=== PATIENT | male | born 1975 | race Native Hawaiian/Other Pacific Islander ===

== ENCOUNTER 2016-10-22 22:17 | Inpatient (IN) | payer MEDICAID ==
[2016-10-22] MEDS ORDERED: Sodium Chloride 0.9% 1,000 ML IV STA (22:22)
[2016-10-22 23:16] LABS: BASO % 0.1 % (0.0-2.0); EOS % 0.2 % (0.0-4.0); HEMOGLOBIN 14.3 g/dL (12.0-18.0); LYMPH # 1.7 K/uL (1.0-4.3); LYMPH % 14.9 % (20.0-40.0); MEAN CELL VOLUME 87.8 fl (80.0-94.0); MEAN CORPUSCULAR HEMOGLOBIN 30.4 pg (27.0-31.0); MEAN CORPUSCULAR HGB CONC 34.7 g/dL (33.0-37.0); MEAN PLATELET VOLUME 6.4 fl (7.2-11.7); MONO # 0.9 K/uL (0.0-0.8); MONO % 8.1 % (0.0-10.0); NEUT # 8.7 K/uL (1.8-7.0); NEUT % 76.7 % (50.0-75.0); NRBC % 0.1 % (0.0-0.0); RBC 4.7 Mil/uL (4.40-5.90); RED CELL DISTRIBUTION WIDTH 13.9 % (11.5-14.5); WHITE BLOOD COUNT 11.4 K/uL (4.8-10.8)
[2016-10-22 23:20] LABS: VENOUS BLOOD GAS BASE EXCESS 11.1 mmol/L (0.0-2.0); VENOUS BLOOD GAS PCO2 55 mmHg (40-60); VENOUS BLOOD GAS PO2 12 mm/Hg (30-55); VENOUS BLOOD PH 7.44 (7.32-7.43)
[2016-10-22 23:30] LABS: ALB/GLOB RATIO 1.1 (1.0-2.1); ALBUMIN 3.4 g/dL (3.5-5.0); ALT/SGPT 70 U/L (21-72); AST/SGOT 65 U/L (17-59); BLOOD UREA NITROGEN 7 mg/dl (9-20); GFR AFRICAN-AMERICAN > 60; GFR NON-AFRICAN AMERICAN > 60
[2016-10-22 23:43] LABS: INR 1.1 (0.9-1.2); PARTIAL THROMBOPLASTIN TIME 31.8 Seconds (25.6-37.1); PROTHROMBIN TIME 12.6 Seconds (9.8-13.1)
[2016-10-22] MEDS ORDERED: Sodium Chloride 0.9% 50 ML IV ONE (23:45)
[2016-10-22] MEDS ORDERED: Iohexol 300 100 ML IJ ONE (23:45)
--- NOTE | 2016-10-23 00:03 | ED PDOC ---
HPI:Nausea, Vomiting, Diarrhea Time Seen by Provider: 10/22/16 22:22 Chief Complaint (Nursing): Flu-like Symptoms Chief Complaint (Provider): Vomiting/Diarrhea History Per: Patient History/Exam Limitations: no limitations Onset/Duration Of Symptoms: Days (x6) Current Symptoms Are (Timing): Still Present Have you had recent travel within the past 21 days to any of the following countries: [place], [place], [place] or [place]?: No Associated Symptoms: Fever, Chills, Vomiting, Diarrhea Additional Complaint(s): 40 year old male presents to ED with complaints of vomiting and diarrhea x6 days and has a past medical history of HIV (Last T cell count: 1000 with an undetectable viral load - on antiviral therapy). Notes watery diarrhea and intermittent vomiting (nonbloody and nonbilious). (+) syncope x4 episodes, subjective fever, chills, and lower abdominal cramping, and decreased appetite. States she was in ED yesterday for same complaint and was discharged. Notes that she feels worse than yesterday and denies recent travel/sick contacts. PCP: [facility] Past Medical History Reviewed: Historical Data, Nursing Documentation, Vital Signs Vital Signs: Last Vital Signs Temp 101.3 F H 10/22/16 23:54 Pulse 114 H 10/22/16 22:18 Resp 20 10/22/16 22:18 BP 128/76 10/22/16 22:18 Pulse Ox 100 10/22/16 22:18 - Medical History PMH: HIV (x7 years) Denies: No Chronic Diseases - Surgical History Surgical History: No Surg Hx - Family History Family History: States: No Known Family Hx - Home Medications Home Medications: Ambulatory Orders Medication Instructions Recorded Emtricitab/Rilpiviri/Tenof Ala 200 mg PO DAILY 10/23/16 [Odefsey Tablet] Loperamide [Imodium] 2 mg PO QID 10/23/16 Ciprofloxacin [Cipro] 500 mg PO Q12 #10 tab 10/25/16 Metronidazole [Flagyl] 500 mg PO Q8 #21 tab 10/25/16 - Allergies Allergies/Adverse Reactions: Allergies Allergy/AdvReac Type Severity Reaction Status Date / Time No Known Allergies Allergy Verified 10/22/16 22:19 Review of Systems ROS Statement: Except As Marked, All Systems Reviewed And Found Negative Constitutional: Positive for: Fever, Chills, Weakness, Malaise Gastrointestinal: Positive for: Vomiting, Abdominal Pain (cramping), Diarrhea, Other (decreased appetite) Genitourinary Male: Negative for: Dysuria, Frequency (less urine output than usual) Neurological: Positive for: Other (Syncope) Physical Exam - Reviewed Nursing Documentation Reviewed: Yes Vital Signs Reviewed: Yes - Physical Exam Appears: Positive for: Non-toxic, Uncomfortable, In Acute Distress (tired appearing) Head Exam: Positive for: ATRAUMATIC Skin: Positive for: Diaphoresis, Pallor ENT: Positive for: Pharynx Is (clear). Negative for: Normal ENT Inspection ( dry mucous membranes) Cardiovascular/Chest: Positive for: Regular Rate, Rhythm, Tachycardia. Negative for: Murmur Respiratory: Positive for: Normal Breath Sounds. Negative for: Respiratory Distress Gastrointestinal/Abdominal: Positive for: Bowel Sounds (hyperactive), Soft, Tenderness (TTP bilateral lower quadrants). Negative for: Mass, Distended, Guarding, Rebound Extremity: Positive for: Normal ROM. Negative for: Deformity Neurologic/Psych: Positive for: Alert, Oriented - Laboratory Results Result Diagrams: 10/24/16 05:00 10/25/16 05:00 - ECG ECG Rhythm: Positive for: Normal QRS, Normal ST Segment. Negative for: Nonspecific Changes O2 Sat by Pulse Oximetry: 100 (RA) Pulse Ox Interpretation: Normal Medical Decision Making Medical Decision Makin Initial impression: abdominal pain and diarrhea and vomitng and syncope DDx: sepsis, dehydration, electrolyte abnormality, gastroenteritis, colitis, diverticulitis Initial plan: * CTA A/P * EKG * EtOH serum * UDrug screen * HIV 1&2 Antibodies * Magnesium * Phosphorus * PTT/PT * Labs * CXR * HIV AB-HIV 1/2 EIA * Potassium Chloride IVPB * NS IV * Acetaminophen 975mg PO * Re-eval Accession No. : [id number] Patient Name / ID : SABRINA WIGGINS / [id number] Exam Date : 10/22/2016 23:55:12 ( Approved ) Study Comment : Sex / Age : M / 40Y Creator : Wally Flores MD Dictator : Concrete Smoother : Pulpit Operator : Wally Flores MD Approver2 : Report Date : 10/23/2016 00:17:00 My Comment : [facility] Division of Radiology [address] [facility] [address] Tel. no. Patient Name: ROSALIE BENNETT Pt. Address: [address] [place] [address] Rec #: [id number] [place] [address]: Kolton MTZ, Aurora Patiño Pt CELL Order Location: [facility] : 1975 Male Age: 40 Order #: [id number] Reason for exam: colitis CT Scan ABD PELVIS IV CONTRAST ONLY Exam Date: 10/22/16 This imaging exam was performed at [facility] EXAM: CT Abdomen and Pelvis With Intravenous Contrast CLINICAL HISTORY: 40 years old, male; Pain; Abdominal pain; Generalized; Additional info: Colitis TECHNIQUE: Axial computed tomography images of the abdomen and pelvis with intravenous contrast. This CT exam was performed using one or more of the following dose reduction techniques: automated exposure control, adjustment of the mA and/or kV according to patient size, and/or use of iterative reconstruction technique. CONTRAST: 95 mL of [id number] administered intravenously. COMPARISON: No relevant prior studies available. FINDINGS: Limitations: Motion artifact - mild. Lower thorax: Minimal atelectasis. ABDOMEN: Liver: Mild periportal edema. Gallbladder and bile ducts: No calcified stones. No ductal dilation. Pancreas: No ductal dilation. No mass. Spleen: No splenomegaly. Adrenals: No mass. Kidneys and ureters: No mass. No hydronephrosis. Stomach and bowel: Mild diffuse mural thickening/mucosal enhancement of colon. No obstruction. Appendix: No findings to suggest acute appendicitis. PELVIS: Bladder: Unremarkable. Reproductive: Unremarkable as visualized. ABDOMEN and PELVIS: Intraperitoneal space: No significant fluid collection. No free air. Bones/joints: No acute fracture. Soft tissues: Tiny umbilical hernia containing fat. Vasculature: Unremarkable. No aneurysm. Lymph nodes: Several subcentimeter short axis mesenteric lymph nodes, nonspecific. IMPRESSION: 1. Colitis, nonspecific. Consider inflammatory or infectious etiologies. 2. Incidental/non-acute findings are described above. Dictated By: Wally Flores MD Dictated Date/Time: 10/23/1616 Signed By: Wally Flores MD Date Signed: 16 Transcribed By: IQRA Transcribe Date/Time : 10/23/1616 ACYP02/VRD 1230am On reeval pt is still lightheaded. pt needs hospitalization for dehydration, hypokalemia, syncope. Likely caused by acute infectious diarrhea and colitis. Dw pt findings and plan of care. IV antibiotics ordered. Scribe Attestation: Documented by Tonya Sotomayor acting as a scribe for Aurora Hi MD. Scribe Attestation: All medical record entries made by the Scribe were at my direction and personally dictated by me. I have reviewed the chart and agree that the record accurately reflects my personal performance of the history, physical exam, medical decision making, and the department course for this patient. I have also personally directed, reviewed, and agree with the discharge instructions and disposition. Disposition - Clinical Impression Clinical Impression: HIV disease, Diarrhea, Hypokalemia, Colitis Discussed With : Edis Mills Doctor Will See Patient In The: Hospital Counseled Patient/Family Regarding: Studies Performed, Diagnosis - Disposition Disposition Time: 00:00 Condition: FAIR - Pt Status Changed To: Hospital Disposition Of: Inpatient - Admit Certification Admit to Inpatient:: After my assessment, the patient will require hospitalization for at least two midnights. This is because of the severity of symptoms shown, intensity of services needed, and/or the medical risk in this patient being treated as an outpatient. - POA Present On Arrival: Falls Or Trauma (syncope)
--- NOTE | 2016-10-23 00:17 | CT ---
EXAM: CT Abdomen and Pelvis With Intravenous Contrast CLINICAL HISTORY: 40 years old, male; Pain; Abdominal pain; Generalized; Additional info: Colitis TECHNIQUE: Axial computed tomography images of the abdomen and pelvis with intravenous contrast. This CT exam was performed using one or more of the following dose reduction techniques: automated exposure control, adjustment of the mA and/or kV according to patient size, and/or use of iterative reconstruction technique. CONTRAST: 95 mL of [id number] administered intravenously. COMPARISON: No relevant prior studies available. FINDINGS: Limitations: Motion artifact - mild. Lower thorax: Minimal atelectasis. ABDOMEN: Liver: Mild periportal edema. Gallbladder and bile ducts: No calcified stones. No ductal dilation. Pancreas: No ductal dilation. No mass. Spleen: No splenomegaly. Adrenals: No mass. Kidneys and ureters: No mass. No hydronephrosis. Stomach and bowel: Mild diffuse mural thickening/mucosal enhancement of colon. No obstruction. Appendix: No findings to suggest acute appendicitis. PELVIS: Bladder: Unremarkable. Reproductive: Unremarkable as visualized. ABDOMEN and PELVIS: Intraperitoneal space: No significant fluid collection. No free air. Bones/joints: No acute fracture. Soft tissues: Tiny umbilical hernia containing fat. Vasculature: Unremarkable. No aneurysm. Lymph nodes: Several subcentimeter short axis mesenteric lymph nodes, nonspecific. IMPRESSION: 1. Colitis, nonspecific. Consider inflammatory or infectious etiologies. 2. Incidental/non-acute findings are described above.
[2016-10-23] MEDS: Potassium CL 10mEq/100ml 100 ML IVPB SCH ×8 (00:32→20:21)
[2016-10-23] MEDS ORDERED: metroNIDAZOLE 500mg/100ml NS 100 ML IV STA (00:36)
[2016-10-23] MEDS ORDERED: Ciprofloxacin 400mg/200ml D5W 400 MG/200 ML BAG IV STA (00:36)
[2016-10-23 01:57] LABS: SQUAMOUS EPITHIAL < 1 /hpf (0-5); URINE BILIRUBIN NEGATIVE (NEGATIVE); URINE BLOOD NEGATIVE (NEGATIVE); URINE CLARITY CLEAR (Clear); URINE COLOR YELLOW (YELLOW); URINE GLUCOSE (UA) NEG (Normal); URINE LEUKOCYTE ESTERASE NEG Leu/uL (Negative); URINE NITRATE NEGATIVE (NEGATIVE); URINE PROTEIN NEGATIVE (NEGATIVE); URINE UROBILINOGEN 0.2-1.0 mg/dL (0.2-1.0)
[2016-10-23 01:59] LABS: VENOUS BLOOD GAS BASE EXCESS 7.7 mmol/L (0.0-2.0); VENOUS BLOOD GAS PCO2 38 mmHg (40-60); VENOUS BLOOD GAS PO2 56 mm/Hg (30-55); VENOUS BLOOD PH 7.52 (7.32-7.43)
[2016-10-23 02:10] LABS: BARBITURATES, UR NEGATIVE (NEGATIVE); BENZODIAZEPINES, UR NEGATIVE (NEGATIVE); OPIATES, UR NEGATIVE (NEGATIVE); PHENCYCLIDINE, UR NEGATIVE (NEGATIVE)
[2016-10-23] MEDS ORDERED: metroNIDAZOLE 500mg/100ml NS 100 ML IVPB ONE (02:58)
[2016-10-23] MEDS ORDERED: Potassium Chloride 20 mEq ER Tab PO ONE (03:00)
[2016-10-23] MEDS ORDERED: Potassium CL 10mEq/100ml 100 ML IVPB SCH (03:00)
[2016-10-23] MEDS ORDERED: Oxycodone/Acetaminophen 5/325 mg Tab PO PRN (05:37)
[2016-10-23] MEDS ORDERED: Potassium Chl 20 mEq in D5-NS 1,000 ML IV SCH (06:00)
[2016-10-23] MEDS: Ciprofloxacin 400mg/200ml D5W 400 MG/200 ML BAG IVPB SCH ×2 (06:16→17:39)
[2016-10-23 07:21] LABS: HEMOGLOBIN 13.4 g/dL (12.0-18.0); MEAN CELL VOLUME 87.6 fl (80.0-94.0); MEAN CORPUSCULAR HEMOGLOBIN 30.1 pg (27.0-31.0); MEAN CORPUSCULAR HGB CONC 34.4 g/dL (33.0-37.0); RBC 4.46 Mil/uL (4.40-5.90); RED CELL DISTRIBUTION WIDTH 14.1 % (11.5-14.5); WHITE BLOOD COUNT 13.8 K/uL (4.8-10.8)
[2016-10-23 07:23] LABS: ALT/SGPT 67 U/L (21-72); AST/SGOT 40 U/L (17-59); BLOOD UREA NITROGEN 6 mg/dl (9-20); CALCIUM 8.2 mg/dL (8.4-10.2); GFR AFRICAN-AMERICAN > 60; GFR NON-AFRICAN AMERICAN > 60; HDL CHOLESTEROL 12 MG/DL (30-70)
[2016-10-23 07:34] LABS: LDL CHOLESTEROL 33 mg/dL (0-129)
[2016-10-23 07:37] LABS: T4 7.32 ug/dl (5.5-11.0)
--- NOTE | 2016-10-23 08:32 | CARD ---
APPROVED REPORT EKG Measurement Heart [id number] <Conclusion> Sinus tachycardia Possible Left atrial enlargement Prolonged QT Abnormal ECG
[2016-10-23] MEDS: metroNIDAZOLE 500mg/100ml NS 100 ML IVPB SCH ×3 (09:51→21:49)
--- NOTE | 2016-10-23 10:30 | RAD ---
HISTORY: Sepsis Patient COMPARISON: No prior. FINDINGS: LUNGS: The lungs are clear. PLEURA: No significant pleural effusion identified, no pneumothorax apparent. CARDIOVASCULAR: Normal. OSSEOUS STRUCTURES: No significant abnormalities. VISUALIZED UPPER ABDOMEN: Normal. OTHER FINDINGS: None. IMPRESSION: No active pulmonary disease.
--- NOTE | 2016-10-23 14:07 | CP.PCM.CON ---
History of Present Illness - History of Present Illness History of Present Illness: Infectious Disease Consult Note- Asked to see this patient at the request of for colitis. HPI- Pt. is a 40 year old male with pmh OF HIv ( as perpt. well controlled on Odyfssey with UD Vl and CD4 in 1000 range) who was admitted with complaints of abdominal cramps and diarrhea and vomiting. as per pt. about 6 days ago he developed abd cramping and diarrhea and he passed out and then again same thing happened next day and he initially went to [facility] and they told him his vitals are good and he was d/c . he states the next day simialr thing happened again and he tried to keep hydrated by drinking gatorade and liquids but he was getting faint and dizy again and hence he came to [facility] and on admission CT he was found to have colitis ( as per report). He states he lives in [place] but he was staying at his friend's house in [place] when these symptoms started . He denies any recent travel, denies any change in his diet, denies any sick contacts. He states he also felt feverish past few days. he denies any ELI, denies any cough or any sob . He states the diarrhea is mucusy and light brown. He states he has had diarrhea in past but not like this. He states he feels better since admission and he denies any nausea today. He is on clear liquid diet now. Review of Systems - Review of Systems Review of Systems: ROS- sattes subjectivefever past few days, denies any ELI, denies any cough, denies any sob, denies any chest pain. had abdominal cramping but not any specific location it moves, denies any dysurea, + dairrhea with mucu like consistency, denies any joint or muscle aches denies any recent travel Past Patient History - Past Medical History & Family History Past Medical History?: Yes - Past Social History Smoking Status: 1 cig per week Alcohol: Occasional Drugs: Denies Home Situation {Lives}: Alone - CARDIAC Hx Cardiac Disorders: No - PULMONARY Hx Respiratory Disorders: No - NEUROLOGICAL Hx Neurological Disorder: No - HEENT Hx HEENT Problems: No - RENAL Hx Chronic Kidney Disease: No - ENDOCRINE/METABOLIC Hx Endocrine Disorders: No - HEMATOLOGICAL/ONCOLOGICAL Hx Blood Disorders: Yes Hx Human Immunodeficiency Virus (HIV): Yes - INTEGUMENTARY Hx Dermatological Problems: No - MUSCULOSKELETAL/RHEUMATOLOGICAL Hx Musculoskeletal Disorders: No Hx Falls: No - GASTROINTESTINAL Hx Gastrointestinal Disorders: Yes Hx Colitis: Yes Hx Diarrhea: Yes - GENITOURINARY/GYNECOLOGICAL Hx Genitourinary Disorders: No - PSYCHIATRIC Hx Psychophysiologic Disorder: No Hx Substance Use: No - SURGICAL HISTORY Hx Surgeries: Yes Other/Comment: Lumbar 4-6 - ANESTHESIA Hx Anesthesia: Yes Hx Anesthesia Reactions: No Hx Malignant Hyperthermia: No Has any member of the family had a problem w/ anesthesia?: No Meds Allergies/Adverse Reactions: Allergies Allergy/AdvReac Type Severity Reaction Status Date / Time No Known Allergies Allergy Verified 10/22/16 22:19 - Medications Medications: Current Medications Acetaminophen (Tylenol 325mg Tab) 975 mg PO ONCE PRN PRN Reason: Fever >100.4 F Last Admin: 10/22/16 23:54 Dose: 975 mg Home Med (Emtricitab/Rilpiviri/Tenof Ala [Odefsey Tablet]) 200 mg PO DAILY [facility] Potassium Chloride/Dextrose/Sod Cl (Potassium Chl 20 Meq In D5-Ns) 1,000 mls @ 80 mls/hr IV .[id number] [facility] Stop: 10/24/16 06:59 Last Admin: 10/23/16 06:16 Dose: 80 mls/hr Metronidazole (Flagyl 500mg/100ml Ns) 100 mls @ 100 mls/hr IVPB Q6 [facility] Last Admin: 10/23/16 09:51 Dose: 100 mls/hr Ciprofloxacin (Cipro 400mg/200ml Dsw) 400 mg in 200 mls @ 200 mls/hr IVPB Q12@ 0600,1800 [facility] Last Admin: 10/23/16 06:16 Dose: 200 mls/hr Potassium Chloride (Potassium Chloride 10 Meq/100 Ml) 100 mls @ 100 mls/hr IVPB Q1 [facility] Stop: 10/23/16 14:59 Last Admin: 10/23/16 13:03 Dose: 100 mls/hr Oxycodone/Acetaminophen (Percocet 5/325 Mg Tab) 1 tab PO Q4 PRN PRN Reason: Pain, moderate (4-7) Stop: 10/26/16 05:38 Physical Exam - Constitutional Appears: Non-toxic, No Acute Distress - Head Exam Head Exam: ATRAUMATIC - Eye Exam Eye Exam: EOMI, PERRL - ENT Exam ENT Exam: Normal Oropharynx - Neck Exam Neck exam: Positive for: Full Rom - Respiratory Exam Respiratory Exam: Clear to Auscultation Bilateral, NORMAL BREATHING PATTERN - Cardiovascular Exam Cardiovascular Exam: RRR, +S1, +S2 - GI/Abdominal Exam GI & Abdominal Exam: Soft Additional comments: Hyperactive BS minimal tenderness with palpation minimal guarding, no rebound - Extremities Exam Additional comments: No edema B/l LE - Neurological Exam Neurological exam: Alert, Oriented x3 Results - Vital Signs Recent Vital Signs: Last Vital Signs Temp 98.6 F 10/23/16 12:39 Pulse 96 H 10/23/16 12:39 Resp 20 10/23/16 12:39 BP 125/81 10/23/16 12:39 Pulse Ox 98 10/23/16 12:39 - Labs Result Diagrams: 10/23/16 05:00 10/23/16 05:00 Labs: Laboratory Results - last 24 hr 10/23/16 10/23/16 10/23/16 01:45 01:45 01:53 WBC RBC Hgb Hct MCV MCH MCHC RDW Plt Count pO2 56 H VBG pH 7.52 H VBG pCO2 38 L VBG HCO3 30.8 VBG Total CO2 32.2 H VBG O2 Sat (Calc) 94.6 H VBG Base Excess 7.7 H VBG Potassium 2.3 L* Sodium 125.0 L Chloride 89.0 L Glucose 171 H Lactate 1.5 FiO2 21.0 Crit Value Called To Maximo prajapati md Crit Value Called By [id number] Crit Value Read Back Y Blood Gas Notified Time 158 Potassium Carbon Dioxide Anion Gap BUN Creatinine Est GFR ( Amer) Est GFR (Non-Af Amer) Random Glucose Calcium Total Bilirubin AST ALT Alkaline Phosphatase Total Protein Albumin Globulin Albumin/Globulin Ratio Triglycerides Cholesterol LDL Cholesterol Direct HDL Cholesterol Thyroxine (T4) TSH 3rd Generation Venous Blood Potassium 2.3 L* Urine Color Yellow Urine Clarity Clear Urine pH 7.0 Ur Specific [place] 1.032 H Urine Protein Negative Urine Glucose (UA) Neg Urine Ketones Negative Urine Blood Negative Urine Nitrate Negative Urine Bilirubin Negative Urine Urobilinogen 0.2-1.0 Ur Leukocyte Esterase Neg Urine RBC (Auto) 4 H Urine Microscopic WBC 1 Ur Squamous Epith Cells < 1 Stool Occult Blood Urine Opiates Screen Negative Urine Methadone Screen Negative Ur Barbiturates Screen Negative Ur Phencyclidine Scrn Negative Ur Amphetamines Screen Negative U Benzodiazepines Scrn Negative U Oth Cocaine Metabols Negative U Cannabinoids Screen Negative 10/23/16 10/23/16 10/23/16 03:03 05:00 05:00 WBC 13.8 H RBC 4.46 Hgb 13.4 Hct 39.0 MCV 87.6 MCH 30.1 MCHC 34.4 RDW 14.1 Plt Count 259 pO2 VBG pH VBG pCO2 VBG HCO3 VBG Total CO2 VBG O2 Sat (Calc) VBG Base Excess VBG Potassium Sodium 129 L Chloride 90 L Glucose Lactate FiO2 Crit Value Called To Crit Value Called By Crit Value Read Back Blood Gas Notified Time Potassium 2.4 L* Carbon Dioxide 31 H Anion Gap 10 BUN 6 L Creatinine 0.9 Est GFR ( Amer) > 60 Est GFR (Non-Af Amer) > 60 Random Glucose 102 Calcium 8.2 L Total Bilirubin 0.9 AST 40 ALT 67 Alkaline Phosphatase 107 Total Protein 5.9 L Albumin 3.0 L Globulin 2.9 Albumin/Globulin Ratio 1.0 Triglycerides 93 Cholesterol 51 LDL Cholesterol Direct 33 HDL Cholesterol 12 L Thyroxine (T4) 7.32 TSH 3rd Generation 1.12 Venous Blood Potassium Urine Color Urine Clarity Urine pH Ur Specific [place] Urine Protein Urine Glucose (UA) Urine Ketones Urine Blood Urine Nitrate Urine Bilirubin Urine Urobilinogen Ur Leukocyte Esterase Urine RBC (Auto) Urine Microscopic WBC Ur Squamous Epith Cells Stool Occult Blood Positive H Urine Opiates Screen Urine Methadone Screen Ur Barbiturates Screen Ur Phencyclidine Scrn Ur Amphetamines Screen U Benzodiazepines Scrn U Oth Cocaine Metabols U Cannabinoids Screen Laboratory Results - last 72 hr 10/22/16 10/22/16 10/22/16 23:11 23:11 23:11 WBC 11.4 H RBC 4.70 Hgb 14.3 Hct 41.3 MCV 87.8 MCH 30.4 MCHC 34.7 RDW 13.9 Plt Count 273 MPV 6.4 L Neut % (Auto) 76.7 H Lymph % (Auto) 14.9 L [place] % (Auto) 8.1 Eos % (Auto) 0.2 Baso % (Auto) 0.1 Neut # 8.7 H Lymph # 1.7 [place] # 0.9 H Eos # 0.0 Baso # 0.0 PT 12.6 INR 1.1 APTT 31.8 pO2 VBG pH VBG pCO2 VBG HCO3 VBG Total CO2 VBG O2 Sat (Calc) VBG Base Excess VBG Potassium Glucose Lactate FiO2 Crit Value Called To Crit Value Called By Crit Value Read Back Blood Gas Notified Time Sodium 129 L Potassium 2.7 L Chloride 84 L Carbon Dioxide 36 H Anion Gap 12 BUN 7 L Creatinine 1.0 Est GFR ( Amer) > 60 Est GFR (Non-Af Amer) > 60 Random Glucose 114 H Calcium 9.0 Phosphorus 2.0 L Magnesium 2.0 Total Bilirubin 0.8 AST 65 H ALT 70 Alkaline Phosphatase 121 Total Protein 6.5 Albumin 3.4 L Globulin 3.1 Albumin/Globulin Ratio 1.1 Triglycerides Cholesterol LDL Cholesterol Direct HDL Cholesterol Thyroxine (T4) TSH 3rd Generation Venous Blood Potassium Urine Color Urine Clarity Urine pH Ur Specific [place] Urine Protein Urine Glucose (UA) Urine Ketones Urine Blood Urine Nitrate Urine Bilirubin Urine Urobilinogen Ur Leukocyte Esterase Urine RBC (Auto) Urine Microscopic WBC Ur Squamous Epith Cells Stool Occult Blood Urine Opiates Screen Urine Methadone Screen Ur Barbiturates Screen Ur Phencyclidine Scrn Ur Amphetamines Screen U Benzodiazepines Scrn U Oth Cocaine Metabols U Cannabinoids Screen Alcohol, Quantitative < 10 HIV-1 Ab Rapid Screen HIV 1&2 Antibody Screen Influenza Typ A,B (EIA) Grp A Beta Strep Ag 10/22/16 10/22/16 10/22/16 23:11 23:11 23:11 WBC RBC Hgb Hct MCV MCH MCHC RDW Plt Count MPV Neut % (Auto) Lymph % (Auto) [place] % (Auto) Eos % (Auto) Baso % (Auto) Neut # Lymph # [place] # Eos # Baso # PT INR APTT pO2 VBG pH VBG pCO2 VBG HCO3 VBG Total CO2 VBG O2 Sat (Calc) VBG Base Excess VBG Potassium Glucose Lactate FiO2 Crit Value Called To Crit Value Called By Crit Value Read Back Blood Gas Notified Time Sodium Potassium Chloride Carbon Dioxide Anion Gap BUN Creatinine Est GFR ( Amer) Est GFR (Non-Af Amer) Random Glucose Calcium Phosphorus Magnesium Total Bilirubin AST ALT Alkaline Phosphatase Total Protein Albumin Globulin Albumin/Globulin Ratio Triglycerides Cholesterol LDL Cholesterol Direct HDL Cholesterol Thyroxine (T4) TSH 3rd Generation Venous Blood Potassium Urine Color Urine Clarity Urine pH Ur Specific [place] Urine Protein Urine Glucose (UA) Urine Ketones Urine Blood Urine Nitrate Urine Bilirubin Urine Urobilinogen Ur Leukocyte Esterase Urine RBC (Auto) Urine Microscopic WBC Ur Squamous Epith Cells Stool Occult Blood Urine Opiates Screen Urine Methadone Screen Ur Barbiturates Screen Ur Phencyclidine Scrn Ur Amphetamines Screen U Benzodiazepines Scrn U Oth Cocaine Metabols U Cannabinoids Screen Alcohol, Quantitative HIV-1 Ab Rapid Screen HIV 1&2 Antibody Screen Reactive H Influenza Typ A,B (EIA) Negative for flu a/b Grp A Beta Strep Ag Negative 10/22/16 10/22/16 10/23/16 23:11 23:17 01:45 WBC RBC Hgb Hct MCV MCH MCHC RDW Plt Count MPV Neut % (Auto) Lymph % (Auto) [place] % (Auto) Eos % (Auto) Baso % (Auto) Neut # Lymph # [place] # Eos # Baso # PT INR APTT pO2 12 L VBG pH 7.44 H VBG pCO2 55 VBG HCO3 31.3 VBG Total CO2 39.1 H VBG O2 Sat (Calc) 18.3 L VBG Base Excess 11.1 H VBG Potassium 2.8 L Glucose 115 H Lactate 2.7 H FiO2 21.0 Crit Value Called To Crit Value Called By Crit Value Read Back Blood Gas Notified Time Sodium 126.0 L Potassium Chloride 85.0 L Carbon Dioxide Anion Gap BUN Creatinine Est GFR ( Amer) Est GFR (Non-Af Amer) Random Glucose Calcium Phosphorus Magnesium Total Bilirubin AST ALT Alkaline Phosphatase Total Protein Albumin Globulin Albumin/Globulin Ratio Triglycerides Cholesterol LDL Cholesterol Direct HDL Cholesterol Thyroxine (T4) TSH 3rd Generation Venous Blood Potassium 2.8 L Urine Color Yellow Urine Clarity Clear Urine pH 7.0 Ur Specific [place] 1.032 H Urine Protein Negative Urine Glucose (UA) Neg Urine Ketones Negative Urine Blood Negative Urine Nitrate Negative Urine Bilirubin Negative Urine Urobilinogen 0.2-1.0 Ur Leukocyte Esterase Neg Urine RBC (Auto) 4 H Urine Microscopic WBC 1 Ur Squamous Epith Cells < 1 Stool Occult Blood Urine Opiates Screen Urine Methadone Screen Ur Barbiturates Screen Ur Phencyclidine Scrn Ur Amphetamines Screen U Benzodiazepines Scrn U Oth Cocaine Metabols U Cannabinoids Screen Alcohol, Quantitative HIV-1 Ab Rapid Screen Reactive H HIV 1&2 Antibody Screen Influenza Typ A,B (EIA) Grp A Beta Strep Ag 10/23/16 10/23/16 10/23/16 01:45 01:53 03:03 WBC RBC Hgb Hct MCV MCH MCHC RDW Plt Count MPV Neut % (Auto) Lymph % (Auto) [place] % (Auto) Eos % (Auto) Baso % (Auto) Neut # Lymph # [place] # Eos # Baso # PT INR APTT pO2 56 H VBG pH 7.52 H VBG pCO2 38 L VBG HCO3 30.8 VBG Total CO2 32.2 H VBG O2 Sat (Calc) 94.6 H VBG Base Excess 7.7 H VBG Potassium 2.3 L* Glucose 171 H Lactate 1.5 FiO2 21.0 Crit Value Called To Maximo prajapati md Crit Value Called By 6075 Crit Value Read Back Y Blood Gas Notified Time 158 Sodium 125.0 L Potassium Chloride 89.0 L Carbon Dioxide Anion Gap BUN Creatinine Est GFR ( Amer) Est GFR (Non-Af Amer) Random Glucose Calcium Phosphorus Magnesium Total Bilirubin AST ALT Alkaline Phosphatase Total Protein Albumin Globulin Albumin/Globulin Ratio Triglycerides Cholesterol LDL Cholesterol Direct HDL Cholesterol Thyroxine (T4) TSH 3rd Generation Venous Blood Potassium 2.3 L* Urine Color Urine Clarity Urine pH Ur Specific [place] Urine Protein Urine Glucose (UA) Urine Ketones Urine Blood Urine Nitrate Urine Bilirubin Urine Urobilinogen Ur Leukocyte Esterase Urine RBC (Auto) Urine Microscopic WBC Ur Squamous Epith Cells Stool Occult Blood Positive H Urine Opiates Screen Negative Urine Methadone Screen Negative Ur Barbiturates Screen Negative Ur Phencyclidine Scrn Negative Ur Amphetamines Screen Negative U Benzodiazepines Scrn Negative U Oth Cocaine Metabols Negative U Cannabinoids Screen Negative Alcohol, Quantitative HIV-1 Ab Rapid Screen HIV 1&2 Antibody Screen Influenza Typ A,B (EIA) Grp A Beta Strep Ag 10/23/16 10/23/16 05:00 05:00 WBC 13.8 H RBC 4.46 Hgb 13.4 Hct 39.0 MCV 87.6 MCH 30.1 MCHC 34.4 RDW 14.1 Plt Count 259 MPV Neut % (Auto) Lymph % (Auto) [place] % (Auto) Eos % (Auto) Baso % (Auto) Neut # Lymph # [place] # Eos # Baso # PT INR APTT pO2 VBG pH VBG pCO2 VBG HCO3 VBG Total CO2 VBG O2 Sat (Calc) VBG Base Excess VBG Potassium Glucose Lactate FiO2 Crit Value Called To Crit Value Called By Crit Value Read Back Blood Gas Notified Time Sodium 129 L Potassium 2.4 L* Chloride 90 L Carbon Dioxide 31 H Anion Gap 10 BUN 6 L Creatinine 0.9 Est GFR ( Amer) > 60 Est GFR (Non-Af Amer) > 60 Random Glucose 102 Calcium 8.2 L Phosphorus Magnesium Total Bilirubin 0.9 AST 40 ALT 67 Alkaline Phosphatase 107 Total Protein 5.9 L Albumin 3.0 L Globulin 2.9 Albumin/Globulin Ratio 1.0 Triglycerides 93 Cholesterol 51 LDL Cholesterol Direct 33 HDL Cholesterol 12 L Thyroxine (T4) 7.32 TSH 3rd Generation 1.12 Venous Blood Potassium Urine Color Urine Clarity Urine pH Ur Specific [place] Urine Protein Urine Glucose (UA) Urine Ketones Urine Blood Urine Nitrate Urine Bilirubin Urine Urobilinogen Ur Leukocyte Esterase Urine RBC (Auto) Urine Microscopic WBC Ur Squamous Epith Cells Stool Occult Blood Urine Opiates Screen Urine Methadone Screen Ur Barbiturates Screen Ur Phencyclidine Scrn Ur Amphetamines Screen U Benzodiazepines Scrn U Oth Cocaine Metabols U Cannabinoids Screen Alcohol, Quantitative HIV-1 Ab Rapid Screen HIV 1&2 Antibody Screen Influenza Typ A,B (EIA) Grp A Beta Strep Ag ) Accession No. : [id number] Patient Name / ID : SABRINA WIGGINS / [id number] Exam Date : 10/22/2016 22:37:47 ( Approved ) Study Comment : Sex / Age : M / 40Y Creator : Riana Orozco MD Dictator : Riana Orozco MD Pattern Grader Supervisor : [employer] Sales Representative : Riana Orozco MD Approver2 : Report Date : 10/23/2016 10:28:45 My Comment : HISTORY: Sepsis Patient COMPARISON: No prior. FINDINGS: LUNGS: The lungs are clear. PLEURA: No significant pleural effusion identified, no pneumothorax apparent. CARDIOVASCULAR: Normal. OSSEOUS STRUCTURES: No significant abnormalities. VISUALIZED UPPER ABDOMEN: Normal. OTHER FINDINGS: None. IMPRESSION: No active pulmonary disease.Accession No. : [id number] Patient Name / ID : SABRINA WIGGINS / [id number] Exam Date : 10/22/2016 23:55:12 ( Approved ) Study Comment : Sex / Age : M / 40Y Creator : Wally Flores MD Dictator : Pattern Grader Supervisor : [employer] Sales Representative : Wally Flores MD Approver2 : Report Date : 10/23/2016 00:17:00 My Comment : [facility] Division of Radiology [address] [place] [address] Tel. no. Patient Name: ROSALIE BENNETT Pt. Address: [address] [place] [address] Rec #: [id number] [place] [address]: Kolton MTZ, Aurora Patiño Pt CELL Order Location: [facility] : 1975 Male Age: 40 Order #: [id number] Reason for exam: colitis CT Scan ABD PELVIS IV CONTRAST ONLY Exam Date: 10/22/16 This imaging exam was performed at [facility] EXAM: CT Abdomen and Pelvis With Intravenous Contrast CLINICAL HISTORY: 40 years old, male; Pain; Abdominal pain; Generalized; Additional info: Colitis TECHNIQUE: Axial computed tomography images of the abdomen and pelvis with intravenous contrast. This CT exam was performed using one or more of the following dose reduction techniques: automated exposure control, adjustment of the mA and/or kV according to patient size, and/or use of iterative reconstruction technique. CONTRAST: 95 mL of [id number] administered intravenously. COMPARISON: No relevant prior studies available. FINDINGS: Limitations: Motion artifact - mild. Lower thorax: Minimal atelectasis. ABDOMEN: Liver: Mild periportal edema. Gallbladder and bile ducts: No calcified stones. No ductal dilation. Pancreas: No ductal dilation. No mass. Spleen: No splenomegaly. Adrenals: No mass. Kidneys and ureters: No mass. No hydronephrosis. Stomach and bowel: Mild diffuse mural thickening/mucosal enhancement of colon. No obstruction. Appendix: No findings to suggest acute appendicitis. PELVIS: Bladder: Unremarkable. Reproductive: Unremarkable as visualized. ABDOMEN and PELVIS: Intraperitoneal space: No significant fluid collection. No free air. Bones/joints: No acute fracture. Soft tissues: Tiny umbilical hernia containing fat. Vasculature: Unremarkable. No aneurysm. Lymph nodes: Several subcentimeter short axis mesenteric lymph nodes, nonspecific. IMPRESSION: 1. Colitis, nonspecific. Consider inflammatory or infectious etiologies. 2. Incidental/non-acute findings are described above. Dictated By: Wally Flores MD Dictated Date/Time: 10/23/1616 Signed By: Wally Flores MD Date Signed: 16 Transcribed By: IQRA Transcribe Date/Time : 10/23/1616 [id number] Assessment & Plan (1) Colitis Status: Acute (2) Diarrhea Status: Acute (3) HIV disease Status: Acute - Assessment and Plan (Free Text) Assessment: A/P- 40 year old male with HIV well controlled admitted with abd cramps and diarrhea found to have colitis on ct scan. afebrile so far here. minimal leukocytosis negative UA CXR- negative plan- check stool culture. check stool O and P. check stool c.diff. advise to continue with current IV flagyl and cipro that was already initiated by the primary doc. check blood cx as well. check Vl and cd4 as well. all above d/w patient and the Flat Sheet Maker at length. Thank you for allowing me to take part in the care of this patient. will f/u while inpatient.
--- NOTE | 2016-10-23 16:46 | CP.PCM.HP ---
History of Present Illness - History of Present Illness History of Present Illness: CC: Abdominal pain. 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 Pt c/o of moderate lower abdominal pain, cramping type, intensity 4:10 associated to diarrhea (watery stool), nausea and vomiting, non bloody, non bilious. Worsening symptoms of Fever (In ER 100.4 F), chills, loss of appetite , dizziness, generalized weakness 2nd to dehydration, Ecchymosis L elbow 2nd to fall at home, Hx of HIV x 7 yrs. 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 Pt denied: CP, SOB, cough, urinary symptoms, sick contact, recent travel. PMHx: HIV for 7 yrs well controlled with [facility]sey, Colitis. Abd/Pelv. CT showed: Colitis unspecified. CXR: No active disease. EKG: Sinus Tachycardia. Present on Admission - Present on Admission Any Indicators Present on Admission: No Review of Systems - Constitutional Constitutional: Chills, Fever, Weight Loss, Weakness - EENT Eyes: Other (negative) Ears: Other (negative) Nose/Mouth/Throat: Other (negative) - Cardiovascular Cardiovascular: Rapid Heart Rate - Respiratory Respiratory: Other (negative) - Gastrointestinal Gastrointestinal: Abdominal Pain, Cramping, Diarrhea, Loose Stools, Nausea, Vomiting - Genitourinary Genitourinary: Other (negative) - Musculoskeletal Musculoskeletal: Other (negative) - Integumentary Integumentary: Other (ecchymosis L elbow) - Neurological Neurological: Dizziness - Psychiatric Psychiatric: Other (negative) - Endocrine Endocrine: Other (negaive) - Hematologic/Lymphatic Hematologic: Other (negative) Past Patient History - Past Medical History & Family History Past Medical History?: Yes Pertinent Family History: Unknown - Past Social History Smoking Status: 1 cig per week Alcohol: Occasional Drugs: Denies Home Situation {Lives}: Alone - CARDIAC Hx Cardiac Disorders: No - PULMONARY Hx Respiratory Disorders: No - NEUROLOGICAL Hx Neurological Disorder: No - HEENT Hx HEENT Problems: No - RENAL Hx Chronic Kidney Disease: No - ENDOCRINE/METABOLIC Hx Endocrine Disorders: No - HEMATOLOGICAL/ONCOLOGICAL Hx Blood Disorders: Yes Hx Human Immunodeficiency Virus (HIV): Yes - INTEGUMENTARY Hx Dermatological Problems: No - MUSCULOSKELETAL/RHEUMATOLOGICAL Hx Musculoskeletal Disorders: No Hx Falls: No - GASTROINTESTINAL Hx Gastrointestinal Disorders: Yes Hx Colitis: Yes Hx Diarrhea: Yes - GENITOURINARY/GYNECOLOGICAL Hx Genitourinary Disorders: No - PSYCHIATRIC Hx Psychophysiologic Disorder: No Hx Substance Use: No - SURGICAL HISTORY Hx Surgeries: Yes Other/Comment: Lumbar 4-6 - ANESTHESIA Hx Anesthesia: Yes Hx Anesthesia Reactions: No Hx Malignant Hyperthermia: No Has any member of the family had a problem w/ anesthesia?: No Meds Allergies/Adverse Reactions: Allergies Allergy/AdvReac Type Severity Reaction Status Date / Time No Known Allergies Allergy Verified 10/22/16 22:19 Physical Exam - Constitutional Appears: No Acute Distress - Head Exam Head Exam: ATRAUMATIC - Eye Exam Eye Exam: PERRL - ENT Exam ENT Exam: Normal Oropharynx - Neck Exam Neck exam: Positive for: Normal Inspection - Respiratory Exam Respiratory Exam: NORMAL BREATHING PATTERN - Cardiovascular Exam Cardiovascular Exam: REGULAR RHYTHM - GI/Abdominal Exam GI & Abdominal Exam: Guarding (minimal), Hyperactive Bowel Sounds, Soft, Tenderness (minimal with palpation). absent: Rebound - Extremities Exam Additional comments: Ecchymosis L elbow - Back Exam Back exam: NORMAL INSPECTION - Neurological Exam Neurological exam: Alert, Oriented x3 - Psychiatric Exam Psychiatric exam: Normal Mood - Skin Skin Exam: Warm Results - Vital Signs Recent Vital Signs: Last Vital Signs Temp 98.1 F 10/23/16 16:27 Pulse 96 H 10/23/16 16:27 Resp 20 10/23/16 16:27 BP 117/74 10/23/16 16:27 Pulse Ox 96 10/23/16 16:27 reviewed Angela - Labs Result Diagrams: 10/24/16 05:00 10/24/16 05:00 Labs: Laboratory Results - last 24 hr 10/23/16 10/23/16 10/23/16 01:45 01:45 01:53 WBC RBC Hgb Hct MCV MCH MCHC RDW Plt Count pO2 56 H VBG pH 7.52 H VBG pCO2 38 L VBG HCO3 30.8 VBG Total CO2 32.2 H VBG O2 Sat (Calc) 94.6 H VBG Base Excess 7.7 H VBG Potassium 2.3 L* Sodium 125.0 L Chloride 89.0 L Glucose 171 H Lactate 1.5 FiO2 21.0 Crit Value Called To Maximo prajapati md Crit Value Called By [id number] Crit Value Read Back Y Blood Gas Notified Time 158 Potassium Carbon Dioxide Anion Gap BUN Creatinine Est GFR ( Amer) Est GFR (Non-Af Amer) Random Glucose Calcium Total Bilirubin AST ALT Alkaline Phosphatase Total Protein Albumin Globulin Albumin/Globulin Ratio Triglycerides Cholesterol LDL Cholesterol Direct HDL Cholesterol Thyroxine (T4) TSH 3rd Generation Venous Blood Potassium 2.3 L* Urine Color Yellow Urine Clarity Clear Urine pH 7.0 Ur Specific [place] 1.032 H Urine Protein Negative Urine Glucose (UA) Neg Urine Ketones Negative Urine Blood Negative Urine Nitrate Negative Urine Bilirubin Negative Urine Urobilinogen 0.2-1.0 Ur Leukocyte Esterase Neg Urine RBC (Auto) 4 H Urine Microscopic WBC 1 Ur Squamous Epith Cells < 1 Stool Occult Blood Urine Opiates Screen Negative Urine Methadone Screen Negative Ur Barbiturates Screen Negative Ur Phencyclidine Scrn Negative Ur Amphetamines Screen Negative U Benzodiazepines Scrn Negative U Oth Cocaine Metabols Negative U Cannabinoids Screen Negative 10/23/16 10/23/16 10/23/16 03:03 05:00 05:00 WBC 13.8 H RBC 4.46 Hgb 13.4 Hct 39.0 MCV 87.6 MCH 30.1 MCHC 34.4 RDW 14.1 Plt Count 259 pO2 VBG pH VBG pCO2 VBG HCO3 VBG Total CO2 VBG O2 Sat (Calc) VBG Base Excess VBG Potassium Sodium 129 L Chloride 90 L Glucose Lactate FiO2 Crit Value Called To Crit Value Called By Crit Value Read Back Blood Gas Notified Time Potassium 2.4 L* Carbon Dioxide 31 H Anion Gap 10 BUN 6 L Creatinine 0.9 Est GFR ( Amer) > 60 Est GFR (Non-Af Amer) > 60 Random Glucose 102 Calcium 8.2 L Total Bilirubin 0.9 AST 40 ALT 67 Alkaline Phosphatase 107 Total Protein 5.9 L Albumin 3.0 L Globulin 2.9 Albumin/Globulin Ratio 1.0 Triglycerides 93 Cholesterol 51 LDL Cholesterol Direct 33 HDL Cholesterol 12 L Thyroxine (T4) 7.32 TSH 3rd Generation 1.12 Venous Blood Potassium Urine Color Urine Clarity Urine pH Ur Specific [place] Urine Protein Urine Glucose (UA) Urine Ketones Urine Blood Urine Nitrate Urine Bilirubin Urine Urobilinogen Ur Leukocyte Esterase Urine RBC (Auto) Urine Microscopic WBC Ur Squamous Epith Cells Stool Occult Blood Positive H Urine Opiates Screen Urine Methadone Screen Ur Barbiturates Screen Ur Phencyclidine Scrn Ur Amphetamines Screen U Benzodiazepines Scrn U Oth Cocaine Metabols U Cannabinoids Screen reviewed J.P. - EKG Data EKG comments: Reviewed J.P. - Imaging and Cardiology Chest x-ray Status: Report reviewed by me (Angela) CT scan - abdomen Status: Report reviewed by me (Angela) CT scan - pelvis Status: Report reviewed by me (Angela) Assessment & Plan (1) Colitis Status: Acute Priority: High (2) Diarrhea Status: Acute Priority: High (3) HIV disease Status: Acute Priority: High (4) Hypokalemia Status: Acute Priority: High - Assessment and Plan (Free Text) Plan: Continue Flagyl, Cipro, Percocet, IV fluid, f/u Ova & Parasite, Blood C-S, U C-S , Stool C-S, Throat C-S, ID consult appreciated. - Date & Time Date: 10/23/16 Time: 11:30
[2016-10-23] MEDS: RILPIVIRINE PO SCH (18:06)
[2016-10-23] MEDS: EMTRICITABINE PO SCH (18:06)
[2016-10-23] MEDS: TENOFOVIR ALAFENAMIDE PO SCH (18:06)
[2016-10-24] MEDS: metroNIDAZOLE 500mg/100ml NS 100 ML IVPB SCH ×3 (03:43→17:14)
[2016-10-24] MEDS: Ciprofloxacin 400mg/200ml D5W 400 MG/200 ML BAG IVPB SCH ×2 (05:18→17:16)
[2016-10-24 05:56] LABS: BASO % 0.3 % (0.0-2.0); EOS % 0.5 % (0.0-4.0); LYMPH # 2.8 K/uL (1.0-4.3); LYMPH % 34.3 % (20.0-40.0); MEAN CELL VOLUME 88.6 fl (80.0-94.0); MEAN CORPUSCULAR HEMOGLOBIN 30.3 pg (27.0-31.0); MEAN CORPUSCULAR HGB CONC 34.2 g/dL (33.0-37.0); MEAN PLATELET VOLUME 6.2 fl (7.2-11.7); MONO # 1.2 K/uL (0.0-0.8); MONO % 14.2 % (0.0-10.0); NEUT # 4.2 K/uL (1.8-7.0); NEUT % 50.7 % (50.0-75.0); RBC 3.96 Mil/uL (4.40-5.90); WHITE BLOOD COUNT 8.2 K/uL (4.8-10.8)
[2016-10-24 06:15] LABS: BLOOD UREA NITROGEN 11 mg/dl (9-20); GFR AFRICAN-AMERICAN > 60; GFR NON-AFRICAN AMERICAN > 60
[2016-10-24] MEDS: EMTRICITABINE PO SCH (09:23)
[2016-10-24] MEDS: RILPIVIRINE PO SCH (09:23)
[2016-10-24] MEDS: TENOFOVIR ALAFENAMIDE PO SCH (09:23)
[2016-10-24] MEDS: Potassium CL 10mEq/100ml 100 ML IVPB SCH ×2 (09:36→11:35)
[2016-10-24 11:07] LABS: % CD4 (T HELPER CELL) 59 Percent (30-61); % CD8 (SUPPRESSOR T CELL) 23 Percent (12-42); ABSOLUTE CD4 CELLS 1190 Cells/mcL (490-1740); ABSOLUTE CD8 CELLS 469 Cells/mcL (180-1170); ABSOLUTE LYMPHOCYTES 2012 Cells/mcL (850-3900); HELPER/SUPPRESSOR RATIO 2.54 Ratio (0.86-5.00)
--- NOTE | 2016-10-24 14:11 | CP.PCM.PN ---
Subjective - Date & Time of Evaluation Date of Evaluation: 10/24/16 Time of Evaluation: 14:11 - Subjective Subjective: ID Note- Pt. seen and examined today. Pt. states he feels much better and states so far today he has had no diarrhea. He states he is eating ok as well. denies any fever or chills. denies any abd. pain. Objective - Vital Signs/Intake and Output Vital Signs (last 24 hours): Temp Pulse Resp BP Pulse Ox 98.1 F 90 20 118/79 98 10/24/16 12:39 10/24/16 12:39 10/24/16 12:39 10/24/16 12:39 10/24/16 12:39 - Medications Medications: Current Medications Acetaminophen (Tylenol 325mg Tab) 975 mg PO ONCE PRN PRN Reason: Fever >100.4 F Last Admin: 10/22/16 23:54 Dose: 975 mg Home Med (Emtricitab/Rilpiviri/Tenof Ala [Odefsey Tablet]) 200 mg PO DAILY [facility] Last Admin: 10/24/16 09:23 Dose: 200 mg Ciprofloxacin (Cipro 400mg/200ml Dsw) 400 mg in 200 mls @ 200 mls/hr IVPB Q12@ 0600,1800 [facility] Last Admin: 10/24/16 05:18 Dose: 200 mls/hr Metronidazole (Flagyl 500mg/100ml Ns) 100 mls @ 100 mls/hr IVPB Q8 [facility] Last Admin: 10/24/16 09:34 Dose: 100 mls/hr Oxycodone/Acetaminophen (Percocet 5/325 Mg Tab) 1 tab PO Q4 PRN PRN Reason: Pain, moderate (4-7) Stop: 10/26/16 05:38 - Labs Labs: - Constitutional Appears: No Acute Distress - Head Exam Head Exam: ATRAUMATIC - Eye Exam Eye Exam: EOMI, PERRL - ENT Exam ENT Exam: Normal Oropharynx - Neck Exam Neck Exam: Full ROM - Respiratory Exam Respiratory Exam: Clear to Ausculation Bilateral, NORMAL BREATHING PATTERN - Cardiovascular Exam Cardiovascular Exam: RRR, +S1, +S2 - GI/Abdominal Exam GI & Abdominal Exam: Soft, Normal Bowel Sounds Additional comments: NT, ND - Extremities Exam Extremities Exam: Normal Inspection - Neurological Exam Neurological Exam: Alert, Oriented x3 - Additional Findings Additional findings: Laboratory Results - last 72 hr 10/22/16 10/22/16 10/22/16 23:11 23:11 23:11 WBC 11.4 H RBC 4.70 Hgb 14.3 Hct 41.3 MCV 87.8 MCH 30.4 MCHC 34.7 RDW 13.9 Plt Count 273 MPV 6.4 L Neut % (Auto) 76.7 H Lymph % (Auto) 14.9 L [place] % (Auto) 8.1 Eos % (Auto) 0.2 Baso % (Auto) 0.1 Neut # 8.7 H Lymph # 1.7 [place] # 0.9 H Eos # 0.0 Baso # 0.0 PT 12.6 INR 1.1 APTT 31.8 pO2 VBG pH VBG pCO2 VBG HCO3 VBG Total CO2 VBG O2 Sat (Calc) VBG Base Excess VBG Potassium Glucose Lactate FiO2 Crit Value Called To Crit Value Called By Crit Value Read Back Blood Gas Notified Time Sodium 129 L Potassium 2.7 L Chloride 84 L Carbon Dioxide 36 H Anion Gap 12 BUN 7 L Creatinine 1.0 Est GFR ( Amer) > 60 Est GFR (Non-Af Amer) > 60 Random Glucose 114 H Calcium 9.0 Phosphorus 2.0 L Magnesium 2.0 Total Bilirubin 0.8 AST 65 H ALT 70 Alkaline Phosphatase 121 Total Protein 6.5 Albumin 3.4 L Globulin 3.1 Albumin/Globulin Ratio 1.1 Triglycerides Cholesterol LDL Cholesterol Direct HDL Cholesterol Thyroxine (T4) TSH 3rd Generation Venous Blood Potassium Urine Color Urine Clarity Urine pH Ur Specific [place] Urine Protein Urine Glucose (UA) Urine Ketones Urine Blood Urine Nitrate Urine Bilirubin Urine Urobilinogen Ur Leukocyte Esterase Urine RBC (Auto) Urine Microscopic WBC Ur Squamous Epith Cells Stool Occult Blood Stool Leukocytes, Qual Urine Opiates Screen Urine Methadone Screen Ur Barbiturates Screen Ur Phencyclidine Scrn Ur Amphetamines Screen U Benzodiazepines Scrn U Oth Cocaine Metabols U Cannabinoids Screen Alcohol, Quantitative < 10 Absolute Lymphs (Flow) % CD4 Cells Absolute CD4 Count T-Help/Suppress Ratio % CD8 Cells Absolute CD8 Count C. difficile Ag & Toxin HIV-1 Ab Rapid Screen HIV 1&2 Antibody Screen Influenza Typ A,B (EIA) Grp A Beta Strep Ag 10/22/16 10/22/16 10/22/16 23:11 23:11 23:11 WBC RBC Hgb Hct MCV MCH MCHC RDW Plt Count MPV Neut % (Auto) Lymph % (Auto) [place] % (Auto) Eos % (Auto) Baso % (Auto) Neut # Lymph # [place] # Eos # Baso # PT INR APTT pO2 VBG pH VBG pCO2 VBG HCO3 VBG Total CO2 VBG O2 Sat (Calc) VBG Base Excess VBG Potassium Glucose Lactate FiO2 Crit Value Called To Crit Value Called By Crit Value Read Back Blood Gas Notified Time Sodium Potassium Chloride Carbon Dioxide Anion Gap BUN Creatinine Est GFR ( Amer) Est GFR (Non-Af Amer) Random Glucose Calcium Phosphorus Magnesium Total Bilirubin AST ALT Alkaline Phosphatase Total Protein Albumin Globulin Albumin/Globulin Ratio Triglycerides Cholesterol LDL Cholesterol Direct HDL Cholesterol Thyroxine (T4) TSH 3rd Generation Venous Blood Potassium Urine Color Urine Clarity Urine pH Ur Specific [place] Urine Protein Urine Glucose (UA) Urine Ketones Urine Blood Urine Nitrate Urine Bilirubin Urine Urobilinogen Ur Leukocyte Esterase Urine RBC (Auto) Urine Microscopic WBC Ur Squamous Epith Cells Stool Occult Blood Stool Leukocytes, Qual Urine Opiates Screen Urine Methadone Screen Ur Barbiturates Screen Ur Phencyclidine Scrn Ur Amphetamines Screen U Benzodiazepines Scrn U Oth Cocaine Metabols U Cannabinoids Screen Alcohol, Quantitative Absolute Lymphs (Flow) % CD4 Cells Absolute CD4 Count T-Help/Suppress Ratio % CD8 Cells Absolute CD8 Count C. difficile Ag & Toxin HIV-1 Ab Rapid Screen HIV 1&2 Antibody Screen Reactive H Influenza Typ A,B (EIA) Negative for flu a/b Grp A Beta Strep Ag Negative 10/22/16 10/22/16 10/23/16 23:11 23:17 01:45 WBC RBC Hgb Hct MCV MCH MCHC RDW Plt Count MPV Neut % (Auto) Lymph % (Auto) [place] % (Auto) Eos % (Auto) Baso % (Auto) Neut # Lymph # [place] # Eos # Baso # PT INR APTT pO2 12 L VBG pH 7.44 H VBG pCO2 55 VBG HCO3 31.3 VBG Total CO2 39.1 H VBG O2 Sat (Calc) 18.3 L VBG Base Excess 11.1 H VBG Potassium 2.8 L Glucose 115 H Lactate 2.7 H FiO2 21.0 Crit Value Called To Crit Value Called By Crit Value Read Back Blood Gas Notified Time Sodium 126.0 L Potassium Chloride 85.0 L Carbon Dioxide Anion Gap BUN Creatinine Est GFR ( Amer) Est GFR (Non-Af Amer) Random Glucose Calcium Phosphorus Magnesium Total Bilirubin AST ALT Alkaline Phosphatase Total Protein Albumin Globulin Albumin/Globulin Ratio Triglycerides Cholesterol LDL Cholesterol Direct HDL Cholesterol Thyroxine (T4) TSH 3rd Generation Venous Blood Potassium 2.8 L Urine Color Yellow Urine Clarity Clear Urine pH 7.0 Ur Specific [place] 1.032 H Urine Protein Negative Urine Glucose (UA) Neg Urine Ketones Negative Urine Blood Negative Urine Nitrate Negative Urine Bilirubin Negative Urine Urobilinogen 0.2-1.0 Ur Leukocyte Esterase Neg Urine RBC (Auto) 4 H Urine Microscopic WBC 1 Ur Squamous Epith Cells < 1 Stool Occult Blood Stool Leukocytes, Qual Urine Opiates Screen Urine Methadone Screen Ur Barbiturates Screen Ur Phencyclidine Scrn Ur Amphetamines Screen U Benzodiazepines Scrn U Oth Cocaine Metabols U Cannabinoids Screen Alcohol, Quantitative Absolute Lymphs (Flow) % CD4 Cells Absolute CD4 Count T-Help/Suppress Ratio % CD8 Cells Absolute CD8 Count C. difficile Ag & Toxin HIV-1 Ab Rapid Screen Reactive H HIV 1&2 Antibody Screen Influenza Typ A,B (EIA) Grp A Beta Strep Ag 10/23/16 10/23/16 10/23/16 01:45 01:53 03:03 WBC RBC Hgb Hct MCV MCH MCHC RDW Plt Count MPV Neut % (Auto) Lymph % (Auto) [place] % (Auto) Eos % (Auto) Baso % (Auto) Neut # Lymph # [place] # Eos # Baso # PT INR APTT pO2 56 H VBG pH 7.52 H VBG pCO2 38 L VBG HCO3 30.8 VBG Total CO2 32.2 H VBG O2 Sat (Calc) 94.6 H VBG Base Excess 7.7 H VBG Potassium 2.3 L* Glucose 171 H Lactate 1.5 FiO2 21.0 Crit Value Called To Maximo prajapati md Crit Value Called By [id number] Crit Value Read Back Y Blood Gas Notified Time 158 Sodium 125.0 L Potassium Chloride 89.0 L Carbon Dioxide Anion Gap BUN Creatinine Est GFR ( Amer) Est GFR (Non-Af Amer) Random Glucose Calcium Phosphorus Magnesium Total Bilirubin AST ALT Alkaline Phosphatase Total Protein Albumin Globulin Albumin/Globulin Ratio Triglycerides Cholesterol LDL Cholesterol Direct HDL Cholesterol Thyroxine (T4) TSH 3rd Generation Venous Blood Potassium 2.3 L* Urine Color Urine Clarity Urine pH Ur Specific [place] Urine Protein Urine Glucose (UA) Urine Ketones Urine Blood Urine Nitrate Urine Bilirubin Urine Urobilinogen Ur Leukocyte Esterase Urine RBC (Auto) Urine Microscopic WBC Ur Squamous Epith Cells Stool Occult Blood Positive H Stool Leukocytes, Qual Urine Opiates Screen Negative Urine Methadone Screen Negative Ur Barbiturates Screen Negative Ur Phencyclidine Scrn Negative Ur Amphetamines Screen Negative U Benzodiazepines Scrn Negative U Oth Cocaine Metabols Negative U Cannabinoids Screen Negative Alcohol, Quantitative Absolute Lymphs (Flow) % CD4 Cells Absolute CD4 Count T-Help/Suppress Ratio % CD8 Cells Absolute CD8 Count C. difficile Ag & Toxin HIV-1 Ab Rapid Screen HIV 1&2 Antibody Screen Influenza Typ A,B (EIA) Grp A Beta Strep Ag 10/23/16 10/23/16 10/23/16 05:00 05:00 05:00 WBC 13.8 H RBC 4.46 Hgb 13.4 Hct 39.0 MCV 87.6 MCH 30.1 MCHC 34.4 RDW 14.1 Plt Count 259 MPV Neut % (Auto) Lymph % (Auto) [place] % (Auto) Eos % (Auto) Baso % (Auto) Neut # Lymph # [place] # Eos # Baso # PT INR APTT pO2 VBG pH VBG pCO2 VBG HCO3 VBG Total CO2 VBG O2 Sat (Calc) VBG Base Excess VBG Potassium Glucose Lactate FiO2 Crit Value Called To Crit Value Called By Crit Value Read Back Blood Gas Notified Time Sodium 129 L Potassium 2.4 L* Chloride 90 L Carbon Dioxide 31 H Anion Gap 10 BUN 6 L Creatinine 0.9 Est GFR ( Amer) > 60 Est GFR (Non-Af Amer) > 60 Random Glucose 102 Calcium 8.2 L Phosphorus Magnesium Total Bilirubin 0.9 AST 40 ALT 67 Alkaline Phosphatase 107 Total Protein 5.9 L Albumin 3.0 L Globulin 2.9 Albumin/Globulin Ratio 1.0 Triglycerides 93 Cholesterol 51 LDL Cholesterol Direct 33 HDL Cholesterol 12 L Thyroxine (T4) 7.32 TSH 3rd Generation 1.12 Venous Blood Potassium Urine Color Urine Clarity Urine pH Ur Specific [place] Urine Protein Urine Glucose (UA) Urine Ketones Urine Blood Urine Nitrate Urine Bilirubin Urine Urobilinogen Ur Leukocyte Esterase Urine RBC (Auto) Urine Microscopic WBC Ur Squamous Epith Cells Stool Occult Blood Stool Leukocytes, Qual Urine Opiates Screen Urine Methadone Screen Ur Barbiturates Screen Ur Phencyclidine Scrn Ur Amphetamines Screen U Benzodiazepines Scrn U Oth Cocaine Metabols U Cannabinoids Screen Alcohol, Quantitative Absolute Lymphs (Flow) 2011 % CD4 Cells 59 Absolute CD4 Count 1190 T-Help/Suppress Ratio 2.54 % CD8 Cells 23 Absolute CD8 Count 469 C. difficile Ag & Toxin HIV-1 Ab Rapid Screen HIV 1&2 Antibody Screen Influenza Typ A,B (EIA) Grp A Beta Strep Ag 10/23/16 10/24/16 10/24/16 10:56 05:00 05:00 WBC 8.2 RBC 3.96 L Hgb 12.0 Hct 35.0 MCV 88.6 MCH 30.3 MCHC 34.2 RDW 14.0 Plt Count 267 MPV 6.2 L Neut % (Auto) 50.7 Lymph % (Auto) 34.3 [place] % (Auto) 14.2 H Eos % (Auto) 0.5 Baso % (Auto) 0.3 Neut # 4.2 Lymph # 2.8 [place] # 1.2 H Eos # 0.0 Baso # 0.0 PT INR APTT pO2 VBG pH VBG pCO2 VBG HCO3 VBG Total CO2 VBG O2 Sat (Calc) VBG Base Excess VBG Potassium Glucose Lactate FiO2 Crit Value Called To Crit Value Called By Crit Value Read Back Blood Gas Notified Time Sodium 137 Potassium 2.9 L Chloride 100 Carbon Dioxide 29 Anion Gap 11 BUN 11 Creatinine 0.8 Est GFR ( Amer) > 60 Est GFR (Non-Af Amer) > 60 Random Glucose 121 H Calcium 8.0 L Phosphorus Magnesium Total Bilirubin AST ALT Alkaline Phosphatase Total Protein Albumin Globulin Albumin/Globulin Ratio Triglycerides Cholesterol LDL Cholesterol Direct HDL Cholesterol Thyroxine (T4) TSH 3rd Generation Venous Blood Potassium Urine Color Urine Clarity Urine pH Ur Specific [place] Urine Protein Urine Glucose (UA) Urine Ketones Urine Blood Urine Nitrate Urine Bilirubin Urine Urobilinogen Ur Leukocyte Esterase Urine RBC (Auto) Urine Microscopic WBC Ur Squamous Epith Cells Stool Occult Blood Stool Leukocytes, Qual Positive H Urine Opiates Screen Urine Methadone Screen Ur Barbiturates Screen Ur Phencyclidine Scrn Ur Amphetamines Screen U Benzodiazepines Scrn U Oth Cocaine Metabols U Cannabinoids Screen Alcohol, Quantitative Absolute Lymphs (Flow) % CD4 Cells Absolute CD4 Count T-Help/Suppress Ratio % CD8 Cells Absolute CD8 Count C. difficile Ag & Toxin HIV-1 Ab Rapid Screen HIV 1&2 Antibody Screen Influenza Typ A,B (EIA) Grp A Beta Strep Ag 10/24/16 10/24/16 07:00 10:30 WBC RBC Hgb Hct MCV MCH MCHC RDW Plt Count MPV Neut % (Auto) Lymph % (Auto) [place] % (Auto) Eos % (Auto) Baso % (Auto) Neut # Lymph # [place] # Eos # Baso # PT INR APTT pO2 VBG pH VBG pCO2 VBG HCO3 VBG Total CO2 VBG O2 Sat (Calc) VBG Base Excess VBG Potassium Glucose Lactate FiO2 Crit Value Called To Crit Value Called By Crit Value Read Back Blood Gas Notified Time Sodium Potassium Chloride Carbon Dioxide Anion Gap BUN Creatinine Est GFR ( Amer) Est GFR (Non-Af Amer) Random Glucose Calcium Phosphorus Magnesium 2.0 Total Bilirubin AST ALT Alkaline Phosphatase Total Protein Albumin Globulin Albumin/Globulin Ratio Triglycerides Cholesterol LDL Cholesterol Direct HDL Cholesterol Thyroxine (T4) TSH 3rd Generation Venous Blood Potassium Urine Color Urine Clarity Urine pH Ur Specific [place] Urine Protein Urine Glucose (UA) Urine Ketones Urine Blood Urine Nitrate Urine Bilirubin Urine Urobilinogen Ur Leukocyte Esterase Urine RBC (Auto) Urine Microscopic WBC Ur Squamous Epith Cells Stool Occult Blood Stool Leukocytes, Qual Urine Opiates Screen Urine Methadone Screen Ur Barbiturates Screen Ur Phencyclidine Scrn Ur Amphetamines Screen U Benzodiazepines Scrn U Oth Cocaine Metabols U Cannabinoids Screen Alcohol, Quantitative Absolute Lymphs (Flow) % CD4 Cells Absolute CD4 Count T-Help/Suppress Ratio % CD8 Cells Absolute CD8 Count C. difficile Ag & Toxin Negative HIV-1 Ab Rapid Screen HIV 1&2 Antibody Screen Influenza Typ A,B (EIA) Grp A Beta Strep Ag Microbiology 10/23/16 09:56 Stool Ova and Parasite Concentrate Exam - Final 10/23/16 07:59 Stool Ova and Parasite Concentrate Exam - Final 10/22/16 00:00 Blood Blood Culture - Preliminary NO GROWTH AFTER 24 HOURS ) Assessment and Plan (1) Colitis Status: Acute (2) Diarrhea Status: Acute (3) HIV disease Status: Acute - Assessment and Plan (Free Text) Assessment: A/P- 40 year old male with HIV well controlled admitted with abd cramps and diarrhea found to have colitis on ct scan. clinically better no diarrhea today afebrile so far here. minimal leukocytosis has resolved. negative UA CXR- negative stool c.diff- neg stool O and P - neg x 2 plan- await stool culture. advise to continue with current IV flagyl and cipro that was already initiated by the primary doc. day #2. if continues to be diarrhea free and stool cx is neg then he can be d/c on oral cipro and flagyl for another week from ID standpoint and f/u with is PCP as outpatient. all above d/w patient and the Client Support Representative at length.
--- NOTE | 2016-10-24 17:42 | CP.PCM.PN ---
Subjective - Date & Time of Evaluation Date of Evaluation: 10/24/16 Time of Evaluation: 10:50 - Subjective Subjective: F/U Colitis. No diarrhea today, feels better. Objective - Vital Signs/Intake and Output Vital Signs (last 24 hours): Temp Pulse Resp BP Pulse Ox 98.1 F 88 20 114/69 96 10/24/16 15:49 10/24/16 15:49 10/24/16 15:49 10/24/16 15:49 10/24/16 15:49 - Medications Medications: Current Medications Acetaminophen (Tylenol 325mg Tab) 975 mg PO ONCE PRN PRN Reason: Fever >100.4 F Last Admin: 10/22/16 23:54 Dose: 975 mg Home Med (Emtricitab/Rilpiviri/Tenof Ala [Odefsey Tablet]) 200 mg PO DAILY [facility] Last Admin: 10/24/16 09:23 Dose: 200 mg Ciprofloxacin (Cipro 400mg/200ml Dsw) 400 mg in 200 mls @ 200 mls/hr IVPB Q12@ 0600,1800 [facility] Last Admin: 10/24/16 17:16 Dose: 200 mls/hr Metronidazole (Flagyl 500mg/100ml Ns) 100 mls @ 100 mls/hr IVPB Q8 [facility] Last Admin: 10/24/16 17:14 Dose: 100 mls/hr Oxycodone/Acetaminophen (Percocet 5/325 Mg Tab) 1 tab PO Q4 PRN PRN Reason: Pain, moderate (4-7) Stop: 10/26/16 05:38 - Labs Labs: 10/24/16 05:00 10/24/16 05:00 PT 12.6 Seconds (9.8-13.1) 10/22/16 23:11 INR 1.1 (0.9-1.2) 10/22/16 23:11 APTT 31.8 Seconds (25.6-37.1) 10/22/16 23:11 - Constitutional Appears: No Acute Distress - Head Exam Head Exam: ATRAUMATIC - Eye Exam Eye Exam: PERRL - ENT Exam ENT Exam: Normal Oropharynx - Neck Exam Neck Exam: Normal Inspection - Respiratory Exam Respiratory Exam: NORMAL BREATHING PATTERN - Cardiovascular Exam Cardiovascular Exam: REGULAR RHYTHM - GI/Abdominal Exam GI & Abdominal Exam: Soft, Normal Bowel Sounds. absent: Guarding, Tenderness, Rebound - Extremities Exam Additional comments: Ecchymosis L elbow. - Back Exam Back Exam: NORMAL INSPECTION - Neurological Exam Neurological Exam: Alert, Oriented x3 - Psychiatric Exam Psychiatric exam: Normal Mood - Skin Skin Exam: Warm Assessment and Plan (1) Colitis Status: Acute (2) Diarrhea Status: Acute (3) HIV disease Status: Acute (4) Hypokalemia Status: Acute - Assessment and Plan (Free Text) Plan: [place] diet today, continue current Tx.
[2016-10-25] MEDS: metroNIDAZOLE 500mg/100ml NS 100 ML IVPB SCH ×2 (00:17→08:38)
[2016-10-25 00:30] VITALS: RESP 18
[2016-10-25] MEDS: Ciprofloxacin 400mg/200ml D5W 400 MG/200 ML BAG IVPB SCH (05:38)
[2016-10-25 06:54] LABS: BLOOD UREA NITROGEN 17 mg/dl (9-20); CALCIUM 8.3 mg/dL (8.4-10.2); GFR AFRICAN-AMERICAN > 60; GFR NON-AFRICAN AMERICAN > 60
[2016-10-25] MEDS: EMTRICITABINE PO SCH (08:39)
[2016-10-25] MEDS: TENOFOVIR ALAFENAMIDE PO SCH (08:39)
[2016-10-25] MEDS: RILPIVIRINE PO SCH (08:39)
--- NOTE | 2016-10-25 09:22 | CP.PCM.CON ---
History of Present Illness - History of Present Illness History of Present Illness: 40 yo male admitted with weakness, abdominal pain and diarrhea worst over past weak. Associated with a few fainting episodes. Went to [facility] ER but was sent home and symptoms continued. No recent travel. Eats alot of fish including Sushi but doesn't recall any food that may have not been fresh. Review of Systems - Constitutional Constitutional: absent: Chills - EENT Eyes: absent: Blurred Vision, Other Visual Disturbances Nose/Mouth/Throat: absent: Epistaxis - Cardiovascular Cardiovascular: absent: Chest Pain - Respiratory Respiratory: absent: Cough - Gastrointestinal Gastrointestinal: As Per HPI - Genitourinary Genitourinary: absent: Change in Urinary Stream Past Patient History - Past Medical History & Family History Past Medical History?: Yes - Past Social History Smoking Status: 1 cig per week Alcohol: Occasional Drugs: Denies Home Situation {Lives}: Alone - CARDIAC Hx Cardiac Disorders: No - PULMONARY Hx Respiratory Disorders: No - NEUROLOGICAL Hx Neurological Disorder: No - HEENT Hx HEENT Problems: No - RENAL Hx Chronic Kidney Disease: No - ENDOCRINE/METABOLIC Hx Endocrine Disorders: No - HEMATOLOGICAL/ONCOLOGICAL Hx Blood Disorders: Yes Hx Human Immunodeficiency Virus (HIV): Yes - INTEGUMENTARY Hx Dermatological Problems: No - MUSCULOSKELETAL/RHEUMATOLOGICAL Hx Musculoskeletal Disorders: No Hx Falls: No - GASTROINTESTINAL Hx Gastrointestinal Disorders: Yes Hx Colitis: Yes Hx Diarrhea: Yes - GENITOURINARY/GYNECOLOGICAL Hx Genitourinary Disorders: No - PSYCHIATRIC Hx Psychophysiologic Disorder: No Hx Substance Use: No - SURGICAL HISTORY Hx Surgeries: Yes Other/Comment: Lumbar 4-6 - ANESTHESIA Hx Anesthesia: Yes Hx Anesthesia Reactions: No Hx Malignant Hyperthermia: No Has any member of the family had a problem w/ anesthesia?: No Meds Allergies/Adverse Reactions: Allergies Allergy/AdvReac Type Severity Reaction Status Date / Time No Known Allergies Allergy Verified 10/22/16 22:19 - Medications Medications: Current Medications Acetaminophen (Tylenol 325mg Tab) 975 mg PO ONCE PRN PRN Reason: Fever >100.4 F Last Admin: 10/22/16 23:54 Dose: 975 mg Home Med (Emtricitab/Rilpiviri/Tenof Ala [Odefsey Tablet]) 200 mg PO DAILY [facility] Last Admin: 10/25/16 08:39 Dose: 200 mg Ciprofloxacin (Cipro 400mg/200ml Dsw) 400 mg in 200 mls @ 200 mls/hr IVPB Q12@ 0600,1800 [facility] Last Admin: 10/25/16 05:38 Dose: 200 mls/hr Metronidazole (Flagyl 500mg/100ml Ns) 100 mls @ 100 mls/hr IVPB Q8 [facility] Last Admin: 10/25/16 08:38 Dose: 100 mls/hr Oxycodone/Acetaminophen (Percocet 5/325 Mg Tab) 1 tab PO Q4 PRN PRN Reason: Pain, moderate (4-7) Stop: 10/26/16 05:38 Physical Exam - Head Exam Head Exam: NORMAL INSPECTION - Eye Exam Eye Exam: Normal appearance - ENT Exam ENT Exam: Mucous Membranes Moist - Respiratory Exam Respiratory Exam: Clear to Auscultation Bilateral - Cardiovascular Exam Cardiovascular Exam: REGULAR RHYTHM, +S1, +S2 - GI/Abdominal Exam GI & Abdominal Exam: Normal Bowel Sounds, Soft, Tenderness Additional comments: mild generalized tenderness Results - Vital Signs Recent Vital Signs: Last Vital Signs Temp 97.5 F L 10/25/16 08:00 Pulse 87 10/25/16 08:00 Resp 18 10/25/16 08:00 BP 121/74 10/25/16 08:00 Pulse Ox 98 10/25/16 08:00 - Labs Result Diagrams: 10/24/16 05:00 10/25/16 05:00 Labs: Laboratory Results - last 24 hr 10/23/16 10/24/16 10/25/16 05:00 10:30 05:00 Sodium 139 Potassium 3.3 L Chloride 101 Carbon Dioxide 32 H Anion Gap 9 L BUN 17 Creatinine 1.0 Est GFR ( Amer) > 60 Est GFR (Non-Af Amer) > 60 Random Glucose 140 H Calcium 8.3 L Magnesium 2.0 Absolute Lymphs (Flow) 2012 % CD4 Cells 59 Absolute CD4 Count 1190 T-Help/Suppress Ratio 2.54 % CD8 Cells 23 Absolute CD8 Count 469 Assessment & Plan (1) Colitis Assessment and Plan: Likely infectious. Agree with cipro/flagyl and IV hydration with K replenishment. May advance diet as tolerated though avoid fats and lactose for now. Status: Acute Priority: High
--- NOTE | 2016-10-25 09:29 | CP.PCM.PN ---
Subjective - Date & Time of Evaluation Date of Evaluation: 10/25/16 Time of Evaluation: 09:27 - Subjective Subjective: Clinically much better. No pain or diarrhea Objective - Vital Signs/Intake and Output Vital Signs (last 24 hours): Temp Pulse Resp BP Pulse Ox 97.5 F L 87 18 121/74 98 10/25/16 08:00 10/25/16 08:00 10/25/16 08:00 10/25/16 08:00 10/25/16 08:00 Intake and Output: 10/25/16 10/25/16 06:59 18:59 Intake Total 440 Output Total 450 Balance -10 - Medications Medications: Current Medications Acetaminophen (Tylenol 325mg Tab) 975 mg PO ONCE PRN PRN Reason: Fever >100.4 F Last Admin: 10/22/16 23:54 Dose: 975 mg Home Med (Emtricitab/Rilpiviri/Tenof Ala [Odefsey Tablet]) 200 mg PO DAILY [facility] Last Admin: 10/25/16 08:39 Dose: 200 mg Ciprofloxacin (Cipro 400mg/200ml Dsw) 400 mg in 200 mls @ 200 mls/hr IVPB Q12@ 0600,1800 [facility] Last Admin: 10/25/16 05:38 Dose: 200 mls/hr Metronidazole (Flagyl 500mg/100ml Ns) 100 mls @ 100 mls/hr IVPB Q8 [facility] Last Admin: 10/25/16 08:38 Dose: 100 mls/hr Oxycodone/Acetaminophen (Percocet 5/325 Mg Tab) 1 tab PO Q4 PRN PRN Reason: Pain, moderate (4-7) Stop: 10/26/16 05:38 - Labs Labs: 10/24/16 05:00 10/25/16 05:00 PT 12.6 Seconds (9.8-13.1) 10/22/16 23:11 INR 1.1 (0.9-1.2) 10/22/16 23:11 APTT 31.8 Seconds (25.6-37.1) 10/22/16 23:11 - Head Exam Head Exam: ATRAUMATIC - Eye Exam Eye Exam: Normal appearance - Neck Exam Neck Exam: Normal Inspection - Respiratory Exam Respiratory Exam: NORMAL BREATHING PATTERN - Cardiovascular Exam Cardiovascular Exam: REGULAR RHYTHM, +S1, +S2 - GI/Abdominal Exam GI & Abdominal Exam: Soft, Normal Bowel Sounds. absent: Tenderness Assessment and Plan (1) Colitis Assessment & Plan: Clinically better. Stable for discharge with 5 additional days of oral antibiotics. Status: Acute
[2016-10-25] MEDS ORDERED: Potassium Chloride 20 mEq/15 ml LIQ UD PO ONE (11:15)
[2016-10-25 12:21] VITALS: BP 124/81; PULSE 83; TEMP 98.3
[2016-10-25 16:41] VITALS: O2SAT 100
--- NOTE | 2016-10-25 19:37 | CP.PCM.PN ---
Subjective - Date & Time of Evaluation Date of Evaluation: 10/25/16 Time of Evaluation: 11:00 - Subjective Subjective: F/U Colitis. Pt with no c/o, no diarrhea, eating bland diet. Objective - Vital Signs/Intake and Output Vital Signs (last 24 hours): Temp Pulse Resp BP Pulse Ox 98.3 F 83 18 124/81 100 10/25/16 12:00 10/25/16 12:00 10/25/16 12:00 10/25/16 12:00 10/25/16 16:41 - Labs Labs: 10/24/16 05:00 10/25/16 05:00 PT 12.6 Seconds (9.8-13.1) 10/22/16 23:11 INR 1.1 (0.9-1.2) 10/22/16 23:11 APTT 31.8 Seconds (25.6-37.1) 10/22/16 23:11 - Constitutional Appears: No Acute Distress - Head Exam Head Exam: NORMAL INSPECTION - Eye Exam Eye Exam: PERRL - ENT Exam ENT Exam: Normal Oropharynx - Neck Exam Neck Exam: Normal Inspection - Respiratory Exam Respiratory Exam: NORMAL BREATHING PATTERN - Cardiovascular Exam Cardiovascular Exam: REGULAR RHYTHM - GI/Abdominal Exam GI & Abdominal Exam: Soft, Normal Bowel Sounds. absent: Guarding, Tenderness, Rebound - Extremities Exam Additional comments: Ecchymosis L elbow. - Neurological Exam Neurological Exam: Alert, Oriented x3 - Psychiatric Exam Psychiatric exam: Normal Mood - Skin Skin Exam: Warm Assessment and Plan (1) Colitis Status: Acute (2) Diarrhea Status: Acute (3) HIV disease Status: Acute (4) Hypokalemia Status: Acute - Assessment and Plan (Free Text) Plan: Pt improved and stable to be discharged, see instruction medication sheet, f/u with PMD in a week.
--- NOTE | 2016-11-04 12:56 | CP.PCM.DIS ---
Provider - Provider Date of Admission: 10/23/16 00:32 Attending physician: Edis Mills MD Consults: Gastroenterology and Infectious Diseases. Time Spent in preparation of Discharge (in minutes): 25 Diagnosis - Discharge Diagnosis (1) Colitis Status: Acute Priority: High (2) Diarrhea Status: Acute Priority: High (3) HIV disease Status: Acute Priority: High (4) Hypokalemia Status: Acute Priority: High Hospital Course - Lab Results Lab Results: Micro Results 10/23/16 16:25 Blood-Venous Blood Culture - Final NO GROWTH AFTER 5 DAYS 10/23/16 16:25 Blood-Venous Gram Stain - Final TEST NOT PERFORMED 10/23/16 16:00 Blood-Venous Blood Culture - Final NO GROWTH AFTER 5 DAYS 10/23/16 16:00 Blood-Venous Gram Stain - Final TEST NOT PERFORMED 10/23/16 07:14 Stool Ova and Parasite Concentrate Exam - Final 10/23/16 07:51 Stool Stool Culture - Final NO SALMONELLA, SHIGELLA OR CAMPYLOBACTER ISOLATED. 10/23/16 01:35 Urine Urine Culture - Final No Growth (<1,000 CFU/ML) 10/23/16 09:56 Stool Ova and Parasite Concentrate Exam - Final 10/23/16 07:59 Stool Ova and Parasite Concentrate Exam - Final Most Recent Lab Values WBC 8.2 K/uL (4.8-10.8) 10/24/16 05:00 RBC 3.96 Mil/uL (4.40-5.90) L 10/24/16 05:00 Hgb 12.0 g/dL (12.0-18.0) 10/24/16 05:00 Hct 35.0 % (35.0-51.0) 10/24/16 05:00 MCV 88.6 fl (80.0-94.0) 10/24/16 05:00 MCH 30.3 pg (27.0-31.0) 10/24/16 05:00 MCHC 34.2 g/dL (33.0-37.0) 10/24/16 05:00 RDW 14.0 % (11.5-14.5) 10/24/16 05:00 Plt Count 267 K/uL (130-400) 10/24/16 05:00 MPV 6.2 fl (7.2-11.7) L 10/24/16 05:00 Neut % (Auto) 50.7 % (50.0-75.0) 10/24/16 05:00 Lymph % (Auto) 34.3 % (20.0-40.0) 10/24/16 05:00 Bertie % (Auto) 14.2 % (0.0-10.0) H 10/24/16 05:00 Eos % (Auto) 0.5 % (0.0-4.0) 10/24/16 05:00 Baso % (Auto) 0.3 % (0.0-2.0) 10/24/16 05:00 Neut # 4.2 K/uL (1.8-7.0) 10/24/16 05:00 Lymph # 2.8 K/uL (1.0-4.3) 10/24/16 05:00 Bertie # 1.2 K/uL (0.0-0.8) H 10/24/16 05:00 Eos # 0.0 K/uL (0.0-0.7) 10/24/16 05:00 Baso # 0.0 K/uL (0.0-0.2) 10/24/16 05:00 PT 12.6 Seconds (9.8-13.1) 10/22/16 23:11 INR 1.1 (0.9-1.2) 10/22/16 23:11 APTT 31.8 Seconds (25.6-37.1) 10/22/16 23:11 pO2 56 mm/Hg (30-55) H 10/23/16 01:53 VBG pH 7.52 (7.32-7.43) H 10/23/16 01:53 VBG pCO2 38 mmHg (40-60) L 10/23/16 01:53 VBG HCO3 30.8 mmol/L 10/23/16 01:53 VBG Total CO2 32.2 mmol/L (22-28) H 10/23/16 01:53 VBG O2 Sat (Calc) 94.6 % (40-65) H 10/23/16 01:53 VBG Base Excess 7.7 mmol/L (0.0-2.0) H 10/23/16 01:53 VBG Potassium 2.3 mmol/L (3.6-5.2) L* 10/23/16 01:53 Sodium 125.0 mmol/L (132-148) L 10/23/16 01:53 Chloride 89.0 mmol/L (98-107) L 10/23/16 01:53 Glucose 171 mg/dL (75-110) H 10/23/16 01:53 Lactate 1.5 mmol/L (0.7-2.1) 10/23/16 01:53 FiO2 21.0 % 10/23/16 01:53 Crit Value Called To Maximo prajapati md 10/23/16 01:53 Crit Value Called By [id number] 10/23/16 01:53 Crit Value Read Back Y 10/23/16 01:53 Blood Gas Notified Time 158 10/23/16 01:53 Sodium 139 mmol/l (132-148) 10/25/16 05:00 Potassium 3.3 MMOL/L (3.6-5.0) L 10/25/16 05:00 Chloride 101 mmol/L (98-107) 10/25/16 05:00 Carbon Dioxide 32 mmol/L (22-30) H 10/25/16 05:00 Anion Gap 9 (10-20) L 10/25/16 05:00 BUN 17 mg/dl (9-20) 10/25/16 05:00 Creatinine 1.0 mg/dL (0.8-1.5) 10/25/16 05:00 Est GFR ( Amer) > 60 10/25/16 05:00 Est GFR (Non-Af Amer) > 60 10/25/16 05:00 Random Glucose 140 mg/dL (75-110) H 10/25/16 05:00 Calcium 8.3 mg/dL (8.4-10.2) L 10/25/16 05:00 Phosphorus 2.0 mg/dl (2.5-4.5) L 10/22/16 23:11 Magnesium 2.0 MG/DL (1.6-2.3) 10/24/16 10:30 Total Bilirubin 0.9 mg/dl (0.2-1.3) 10/23/16 05:00 AST 40 U/L (17-59) 10/23/16 05:00 ALT 67 U/L (21-72) 10/23/16 05:00 Alkaline Phosphatase 107 U/L (38-126) 10/23/16 05:00 Total Protein 5.9 G/DL (6.3-8.2) L 10/23/16 05:00 Albumin 3.0 g/dL (3.5-5.0) L 10/23/16 05:00 Globulin 2.9 gm/dL (2.2-3.9) 10/23/16 05:00 Albumin/Globulin Ratio 1.0 (1.0-2.1) 10/23/16 05:00 Triglycerides 93 mg/DL (0-149) 10/23/16 05:00 Cholesterol 51 mg/dL (0-199) 10/23/16 05:00 LDL Cholesterol Direct 33 mg/dL (0-129) 10/23/16 05:00 HDL Cholesterol 12 MG/DL (30-70) L 10/23/16 05:00 Thyroxine (T4) 7.32 ug/dl (5.5-11.0) 10/23/16 05:00 TSH 3rd Generation 1.12 mIU/ML (0.46-4.68) 10/23/16 05:00 Venous Blood Potassium 2.3 mmol/L (3.6-5.2) L* 10/23/16 01:53 Urine Color Yellow (YELLOW) 10/23/16 01:45 Urine Clarity Clear (Clear) 10/23/16 01:45 Urine pH 7.0 (5.0-8.0) 10/23/16 01:45 Ur Specific [place] 1.032 (1.003-1.030) H 10/23/16 01:45 Urine Protein Negative mg/dL (NEGATIVE) 10/23/16 01:45 Urine Glucose (UA) Neg mg/dL (Normal) 10/23/16 01:45 Urine Ketones Negative mg/dL (NEGATIVE) 10/23/16 01:45 Urine Blood Negative (NEGATIVE) 10/23/16 01:45 Urine Nitrate Negative (NEGATIVE) 10/23/16 01:45 Urine Bilirubin Negative (NEGATIVE) 10/23/16 01:45 Urine Urobilinogen 0.2-1.0 mg/dL (0.2-1.0) 10/23/16 01:45 Ur Leukocyte Esterase Neg Nico/uL (Negative) 10/23/16 01:45 Urine RBC (Auto) 4 /hpf (0-3) H 10/23/16 01:45 Urine Microscopic WBC 1 /hpf (0-5) 10/23/16 01:45 Ur Squamous Epith Cells < 1 /hpf (0-5) 10/23/16 01:45 Stool Occult Blood Positive (NEGATIVE) H 10/23/16 03:03 Stool Leukocytes, Qual Positive (NEGATIVE) H 10/23/16 10:56 Urine Opiates Screen Negative (NEGATIVE) 10/23/16 01:45 Urine Methadone Screen Negative (NEGATIVE) 10/23/16 01:45 Ur Barbiturates Screen Negative (NEGATIVE) 10/23/16 01:45 Ur Phencyclidine Scrn Negative (NEGATIVE) 10/23/16 01:45 Ur Amphetamines Screen Negative (NEGATIVE) 10/23/16 01:45 U Benzodiazepines Scrn Negative (NEGATIVE) 10/23/16 01:45 U Oth Cocaine Metabols Negative (NEGATIVE) 10/23/16 01:45 U Cannabinoids Screen Negative (NEGATIVE) 10/23/16 01:45 Alcohol, Quantitative < 10 mg/dl (0-10) 10/22/16 23:11 Absolute Lymphs (Flow) 2012 Cells/mcL (850-3900) 10/23/16 05:00 % CD4 Cells 59 Percent (30-61) 10/23/16 05:00 Absolute CD4 Count 1190 Cells/mcL (490-1740) 10/23/16 05:00 T-Help/Suppress Ratio 2.54 Ratio (0.86-5.00) 10/23/16 05:00 % CD8 Cells 23 Percent (12-42) 10/23/16 05:00 Absolute CD8 Count 469 Cells/mcL (180-1170) 10/23/16 05:00 C. difficile Ag & Toxin Negative (NEGATIVE) 10/24/16 07:00 HIV-1 Ab Rapid Screen Reactive (NON REAC) H 10/22/16 23:11 HIV-1 RNA Qnt (RT-PCR) <1.30 not detected (<1.30) 10/23/16 05:00 HIV 1&2 Antibody Screen Reactive (NEGATIVE) H 10/22/16 23:11 Influenza Typ A,B (EIA) Negative for flu a/b (NEGATIVE) 10/22/16 23:11 Grp A Beta Strep Ag Negative (NEGATIVE) 10/22/16 23:11 - Date & Time of H&P Date of H&P: 10/23/16 Time of H&P: 11:30 Discharge Exam - Head Exam Head Exam: NORMAL INSPECTION Discharge Plan - Discharge Medications Prescriptions: Ciprofloxacin [Cipro] 500 mg PO Q12 #10 tab Metronidazole [Flagyl] 500 mg PO Q8 #21 tab - Follow Up Plan Condition: FAIR Disposition: HOME/ ROUTINE Patient education suggested?: Yes Instructions: Hypokalemia (DC), Syncope (DC)
== END 2016-10-25 16:30 | disposition home or self-care (01) | DRG 714 ==
LOC: H.ER 22:17 → H.ERHOLD 10-23 00:32 → H.TEL 10-23 04:21
PROVIDERS: ADMIT Internal Medicine Pulmonary Disease; ATTEND Internal Medicine Pulmonary Disease
DX: K52.89 Other specified noninfective gastroenteritis and colitis (principal); E87.6 Hypokalemia; Z21 Asymptomatic human immunodeficiency virus [HIV] infection status; E86.0 Dehydration; D72.829 Elevated white blood cell count, unspecified; F17.210 Nicotine dependence, cigarettes, uncomplicated